=== PATIENT | male | born 1995 | race Caucasian/White ===

== ENCOUNTER → 2017-05-20 | Outpatient (CLI) | payer BC ==
[2017-05-26 16:10] LABS: EBV EARLY ANTIGEN AB <9.00 U/ML
== END | disposition home or self-care (01) ==
LOC: C.LABPVFM 12:08
PROVIDERS: ATTEND Family Medicine
DX: J03.90 Acute tonsillitis, unspecified (principal); J02.9 Acute pharyngitis, unspecified